=== PATIENT | female | born 1935 | race Caucasian/White ===

== ENCOUNTER → 2016-11-23 | Emergency (ER) | payer MEDICARE, OTHER ==
[~2016-11-23] MED LIST: ALEVE220 MG PO; ASPIR 8181 MG PO; AVAPRO150 MG PO; CARAFATE1 GM PO; COUMADIN2 MG PO; IMDUR60 MG PO; LEVOTHROID (SY50 MCG PO; LOPRESSOR25 MG PO; NITROGLYCERIN0.4 MG SL; PRILOSEC20 M1 PO; VITAMIN D1000 UNI1 PO; XANAX0.25 M1 PO; ZOCOR40 MG PO
== END | disposition disaster alternative care site (69) ==
LOC: GAMB 22:58
DX: E86.0 Dehydration (principal); R53.1 Weakness; R10.9 Unspecified abdominal pain; R11.0 Nausea; Z79.01 Long term (current) use of anticoagulants; Z79.899 Other long term (current) drug therapy

== ENCOUNTER 2016-11-24 03:03 | Emergency (ER) | payer MEDICARE, OTHER ==
--- NOTE | ~2016-11-24 | ER ---
PATIENT'S NAME: STEPHANIE MISHRA [facility] AGE: 80 Y [address] ROOM: [place] [address] LOCATION: ED ADMIT DATE: 11/24/2016 ER/Outpatient Report DISCHARGE DATE: 11/24/2016 FAMILY PHYSICIAN: Shane Gonzalez MD ATTENDING PHYSICIAN: Antonino Johnson Admission date and time documented in medical record. I saw the patient at 0315 hours. CHIEF COMPLAINT: Auditory hallucinations. HISTORY OF PRESENT ILLNESS: The patient is an 80-year-old female, who comes in with auditory hallucinations. The patient is awake, alert, responsive. No neurological changes other than the hallucinations. Denies any head pain, eyes, ears, nose, throat, neck, or spine pain. No lightheadedness, dizziness, syncope, or near-syncope. No fall or trauma. No recent cold, coughs, flus, fever, chills, or sweats. No chest pain or shortness of breath. No abdominal pain, nausea, vomiting, or diarrhea. She has had decreased appetite and decreased fluid intake. She is a little bit dehydrated, was given a liter of normal saline by paramedics earlier this afternoon with improvement. No joint or muscle swelling, redness, or pain. No skin eruptions or rash. No history of neuro changes, psych issues, or endocrine problems. The patient started having these hallucinations after she was started on 2 new medications including tramadol and Requip. HOME MEDICATIONS: See attached medication list. ALLERGIES: PENICILLIN, PROPOXYPHENE, IV CONTRAST DYE, FOSAMAX, CODEINE, BONIVA, AND RANEXA. SOCIAL HISTORY: Nonsmoker and nondrinker. SIGNIFICANT PAST MEDICAL HISTORY: Atherosclerotic ischemic heart disease, coronary artery disease, unstable angina, dyslipidemia, hypertension, renal cyst, osteoporosis, chronic kidney disease, vitamin D deficiency, cataract, paroxysmal atrial fibrillation, chronic anticoagulation with Coumadin. OPERATIONS: Esophagogastroduodenoscopy, cataract extraction, back surgery, four-vessel PATIENT'S NAME: STEPHANIE MISHRA [facility] AGE: 80 Y [address] ROOM: [place] [address] LOCATION: ED ADMIT DATE: 11/24/2016 ER/Outpatient Report DISCHARGE DATE: 11/24/2016 FAMILY PHYSICIAN: Shane Gonzalez MD ATTENDING PHYSICIAN: Antonino Johnson coronary artery bypass graft, cardiac catheterization, PTCA, and stenting. REVIEW OF SYSTEMS: All systems reviewed by me are negative with the exception of those discussed in the history of present illness. PHYSICAL EXAMINATION: VITAL SIGNS: Temperature 97.9, tympanic; pulse 53; respirations 16; blood pressure 148/54; and O2 saturation on room air is 96%. HEAD: Normocephalic. EYES: Extraocular muscles are intact. PERRL. Sclerae and conjunctivae clear, nonicteric. EARS, NOSE, THROAT: Clear. Mucous membranes are moist. NECK: No nuchal rigidity. No thyromegaly or cervical adenopathy. LUNGS: Clear. Good air flow. No rales, rhonchi, or wheezes. HEART: Regular. Pulses are palpable. ABDOMEN: Soft, nondistended, nontender. Good bowel tones. No organomegaly or abnormal mass palpable. EXTREMITIES: No peripheral edema, cyanosis, or deformity. NEUROVASCULAR: Intact. SKIN: Clear. No skin eruptions or rash. PSYCHIATRIC: The patient is awake, responsive, and not hallucinating at the present time. LABORATORY DATA: Urine showed 5 to 10 whites, negative reds, 2 to 5 epithelial cells, negative bacteria per high-powered field, negative nitrites on dipstick. White count was 6000, 83 segs, 10 lymphs, 5 monos, 1 eos, 1 baso, hemoglobin 11.9, hematocrit 35.7, and platelet count was low at 105,000. Sedimentation rate was 10. Pro time is 28.5 with an INR of 1.94. Procalcitonin was less than 0.05. Lactate was 0.5. Venous pH was 7.37. CMS was normal except for an elevated glucose of 109, low calcium of 8.3. Medical blood alcohol was less than 0.01. Amylase was 55. Lipase was 88. CPK initially was 290, repeat 2 hours later was 185. CK-MB was elevated at 6.7, two-hour CK-MB was 4.2. Troponins were normal x2, two hours apart. CRP was 0.67. Serum acetaminophen and salicylate levels were normal. Thyroid tests were normal. ProBNP was 1786. IMAGING DATA: Chest x-ray showed no acute infiltrate or changes. EKG showed sinus bradycardia. No acute ST elevation, ischemic change, or arrhythmia. Left bundle-branch block was present. EMERGENCY DEPARTMENT COURSE: The patient was given 1 L of normal saline IV in the emergency room. PATIENT'S NAME: STEPHANIE MISHRA [facility] AGE: 80 Y [address] ROOM: [place], [place] [address] LOCATION: [facility] ADMIT DATE: 11/24/2016 ER/Outpatient Report DISCHARGE DATE: 11/24/2016 FAMILY PHYSICIAN: Shane Gonzalez MD ATTENDING PHYSICIAN: Antonino Johnson IMPRESSION: 1. Hallucinations most likely medication related. 2. Dehydration with rehydration in the emergency department with normal saline, 2 L. 3. Thrombocytopenia. 4. History of atherosclerotic ischemic heart disease with coronary artery disease. 5. Hypertension. 6. Dyslipidemia. 7. Chronic kidney disease. 8. Vitamin D deficiency. 9. Paroxysmal atrial fibrillation with chronic anticoagulation with Coumadin. PLAN: The patient dismissed home. Observation. Activity as tolerated. Continue present home medications and care. Stop tramadol and ropinirole. Good fluid intake. Good hydration. Balanced diet. Follow up with personal physician in 1 to 2 days. Discussion ensued with the patient and son in regard to my findings and recommendations, they understand. ANTONINO JOHNSON MD SDS/modl /[id number] d: 11/24/16 1019 t: 12/02/16 1826, OUTPATIENT REPORT
[2016-11-24 04:06] LABS: BASOPHIL % 0.7 %; BICARBONATE 24.9 mmol/L (18.0-23.0); EOSINOPHIL % 0.5 %; HEMATOCRIT 35.7 % (30.0-46.0); HEMOGLOBIN 11.9 g/dL (10.0-15.0); IMMATURE GRANULOCYTE % 0.7 %; LACTATE 0.7 mEq/L (0.50-1.60); LYMPHOCYTE # 0.6 K/uL (0.8-4.0); MCH 29.8 pg (27.0-34.0); MCHC 33.3 gm/dL (32.0-36.5); MCV 89.3 fl (83.0-98.0); MONOCYTE # 0.3 K/uL (0.0-1.0); MONOCYTE % 5.3 %; MPV 9.5 fl (9.4-12.4); NEUTROPHIL % 82.8 %; NRBC % 0 /100WBC (0-0.00); PCO2 43 mmHg (35-45); PLATELET COUNT 105 K/uL (150-450); RDW-CV 12.9 % (11.9-14.6)
[2016-11-24 04:07] LABS: PO2 48 mmHg (80-90)
[2016-11-24 04:15] LABS: INR - (THERAPEUTIC) 1.94 (0.92-1.07); PROTIME 20.5 SECONDS (9.8-11.4)
[2016-11-24 04:27] LABS: ALBUMIN 3.1 gm/dL (3.5-5.0); ALK PHOS 66 IU/L (33-138); ALT 20 IU/L (12-78); ANION GAP 10.3 (10.0-19.0); AST 28 IU/L (10-40); BLOOD UREA NITROGEN 24 mg/dL (6-24); CALCIUM 8.3 mg/dL (8.5-10.5); CHLORIDE 109 mMol/L (96-110); CO2 24 mMol/L (22-32); CPK 290 IU/L (21-215); CREATININE 1.2 mg/dL (0.5-1.1); ESTIMATED GFR (MDRD EQUATION) 43; POTASSIUM 4.3 mMol/L (3.7-5.1); SODIUM 139 mMol/L (135-145); TOTAL BILIRUBIN 0.8 mg/dL (0.0-1.5); TOTAL PROTEIN 5.5 g/dL (6.0-8.4)
[2016-11-24 05:44] LABS: BILIRUBIN URINE NEGATIVE (NEGATIVE); BLOOD URINE NEGATIVE /UL (NEGATIVE); COLOR URINE YELLOW (YELLOW); GLUCOSE URINE NEGATIVE (NEGATIVE); KETONE URINE 15 mg/dL (NEGATIVE); LEUKOCYTES URINE 100 /UL (NEGATIVE); NITRITE URINE NEGATIVE (NEGATIVE); PROTEIN URINE NEGATIVE (NEGATIVE); SPEC GRAVITY URINE 1.015 (1.003-1.035); UROBILINOGEN URINE NORMAL (NORMAL)
[2016-11-24 05:55] LABS: TURBIDITY URINE CLEAR (CLEAR)
[2016-11-24 06:08] LABS: CPK 185 IU/L (21-215)
[2016-11-24 06:14] LABS: BACTERIA URINE NEGATIVE (NEGATIVE); RBC URINE NEGATIVE #/HPF (NEGATIVE)
[2016-11-24 06:16] LABS: BARBITURATE NEGATIVE (NEGATIVE); COCAINE NEGATIVE (NEGATIVE); OPIATES NEGATIVE (NEGATIVE)
[2016-11-24 06:25] LABS: AMPHETAMINE NEGATIVE (NEGATIVE)
== END 2016-11-24 06:28 | disposition disaster alternative care site (69) ==
LOC: GMED 03:03
PROVIDERS: Emergency Medicine
DX: E86.0 Dehydration (principal); R44.0 Auditory hallucinations; D69.6 Thrombocytopenia, unspecified; I12.9 Hypertensive chronic kidney disease with stage 1 through stage 4 chronic kidney disease, or unspecified chronic kidney disease; N18.9 Chronic kidney disease, unspecified; I25.10 Atherosclerotic heart disease of native coronary artery without angina pectoris; I48.0 Paroxysmal atrial fibrillation; E78.5 Hyperlipidemia, unspecified; E55.9 Vitamin D deficiency, unspecified; Z88.0 Allergy status to penicillin; Z79.01 Long term (current) use of anticoagulants; Z88.5 Allergy status to narcotic agent; Z88.8 Allergy status to other drugs, medicaments and biological substances; Z91.041 Radiographic dye allergy status; Z95.1 Presence of aortocoronary bypass graft; Z95.5 Presence of coronary angioplasty implant and graft; Z98.49 Cataract extraction status, unspecified eye
CPT/HCPCS: G0480; J7030

== ENCOUNTER → 2016-11-24 | Outpatient (CLI) | payer MEDICARE, OTHER | END | disposition disaster alternative care site (69) | LOC: GAMB 02:48 | DX: R44.0 Auditory hallucinations (principal); G25.81 Restless legs syndrome; Z79.899 Other long term (current) drug therapy | CPT/HCPCS: A0425; A0429; J7030 ==

== ENCOUNTER → 2016-12-24 | Emergency (ER) | payer MEDICARE, OTHER | END | disposition disaster alternative care site (69) | LOC: GAMB 07:54 | DX: R69 Illness, unspecified (principal) ==